=== PATIENT | male | born 1965 | race African-American/Black ===

== ENCOUNTER → 2019-12-10 16:04 | Outpatient (CLI) | payer SELFPAY ==
[2019-12-10 16:36] LABS: Anion Gap 9.9 mEq/L (5-15); Blood Urea Nitrogen 16 mg/dl (9-20); Calcium 9.1 mg/dl (8.4-10.2); Carbon Dioxide 34 mmol/L (22.0-30.0); Chloride 100 mmol/L (98-107); Estimated Glomerular Filt Rate 88 ml/min (>60); GFR (African American) 106 ML/MIN (>60); Glucose 81 mg/dl (74-100); Potassium 3.9 mmoL/L (3.5-5.1); Sodium 140 mmol/L (136-145)
== END ==
PROVIDERS: Visit Provider Internal Medicine
DX: I10 Essential (primary) hypertension (principal)
CPT/HCPCS: 80048

== ENCOUNTER → 2020-02-09 10:47 | Outpatient (CLI) | payer SELFPAY | PROVIDERS: Visit Provider Internal Medicine | DX: R36.9 Urethral discharge, unspecified (principal) | CPT/HCPCS: 87210 ==

== ENCOUNTER → 2020-12-15 18:21 | Outpatient (CLI) | payer SELFPAY ==
[2020-12-15 19:13] LABS: Basophils % 0.7 % (0.1-2.0); Eosinophils # 0.2 K/mm3 (0.0-0.4); Eosinophils % 4.9 % (0.1-12.0); Hematocrit 50.8 % (42.0-52.0); Hemoglobin 16.1 g/dL (14.1-18.0); Lymphocytes # 1.5 K/mm3 (0.7-4.5); Lymphocytes % 33.1 % (10-50); Mean Corpuscular HGB Conc 31.6 g/dL (31.8-35.4); Mean Corpuscular Volume 91.7 fl (80-94); Mean Platelet Volume 9.5 fl (7.4-10.4); Monocytes # 0.5 K/mm3 (0.1-1.0); Monocytes % 11.3 % (1.7-9.3); Neutrophils # 2.2 K/mm3 (1.8-7.8); Platelet Count 296 K/mm3 (142-424); Red Blood Count 5.54 M/mm3 (4.60-6.20); Red Cell Distribution Width 13.9 % (11.5-17.5); White Blood Count 4.4 K/mm3 (4.8-10.8)
[2020-12-15 19:46] LABS: Alanine Aminotransferase 17 U/L (12-78); Albumin Level 3.8 g/dl (3.5-5.0); Albumin/Globulin Ratio 1.1 (1.1-1.8); Alkaline Phosphatase 90 U/L (38-126); Anion Gap 10.4 mEq/L (5-15); Aspartate Amino Transferase 30 U/L (17-59); Bilirubin,Total 0.4 mg/dl (0.2-1.3); Blood Urea Nitrogen 11 mg/dl (9-20); Calcium 8.9 mg/dl (8.4-10.2); Carbon Dioxide 33 mmol/L (22.0-30.0); Chloride 101 mmol/L (98-107); Chol/HDL Ratio 2.9 (1-3.5); Cholesterol 168 mg/dl (140-200); Estimated Glomerular Filt Rate 100 ml/min (>60); GFR (African American) 121 ML/MIN (>60); Globulin 3.6 g/dL (1.3-3.2); Glucose 67 mg/dl (74-100); HDL Cholesterol 57 mg/dl (40-60); Potassium 4.4 mmoL/L (3.5-5.1); Sodium 140 mmol/L (136-145); Total Protein,Serum 7.4 g/dl (6.3-8.2); Triglycerides 71 mg/dl (30-150); VLDL Cholesterol 14 mg/dL (0-40)
[2020-12-15 19:57] LABS: Direct LDL Cholesterol 79.87 mg/dL (100-129)
[2020-12-15 20:17] LABS: Prostate Specific Ag Screen 0.4 ng/ml (0.0-4.0)
== END ==
PROVIDERS: Visit Provider Internal Medicine
DX: I10 Essential (primary) hypertension (principal); E78.5 Hyperlipidemia, unspecified; E87.6 Hypokalemia; N40.1 Benign prostatic hyperplasia with lower urinary tract symptoms; Z12.5 Encounter for screening for malignant neoplasm of prostate
CPT/HCPCS: 80053; 80061; 85025; G0103

== ENCOUNTER → 2021-01-08 14:45 | Outpatient (CLI) | payer SELFPAY ==
--- NOTE | 2021-01-08 15:02 | XR_ITS ---
PROCEDURE: XR CHEST 2V CLINICAL HISTORY: COUGH, RT ANTERIOR CHEST PAIN COMPARISON: No exams were available for comparison FINDINGS: Normal heart size. Patchy density is present in the right lung base consistent with an area of atelectasis or infiltrate. There is also prominence of the left hilum. There are no previous exams for comparison to determine if this is chronic or new. Mild upper thoracic curvature convex right. No acute bony abnormalities. IMPRESSION: Patchy atelectasis or infiltrate in the right lung base. Prominent left hilum. Follow-up suggested. Nonemergent CT chest with contrast may be of further value. Dictated by: Speedy Nielsen MD 01/08/2021 17:01 Speedy Nielsen MD in [place] 01/08/2021 17:01
[2021-01-08 15:09] LABS: Chloride 95 mmol/L (98-107); Sodium 140 mmol/L (136-145)
[2021-01-08 15:10] LABS: Basophils % 1.1 % (0.1-2.0); Eosinophils % 0.6 % (0.1-12.0); Hematocrit 50.4 % (42.0-52.0); Hemoglobin 16.7 g/dL (14.1-18.0); Lymphocytes # 0.8 K/mm3 (0.7-4.5); Lymphocytes % 26.5 % (10-50); Mean Corpuscular HGB Conc 33.2 g/dL (31.8-35.4); Mean Corpuscular Hemoglobin 29.4 pg (27.0-31.2); Mean Corpuscular Volume 88.5 fl (80-94); Mean Platelet Volume 8.7 fl (7.4-10.4); Monocytes # 0.1 K/mm3 (0.1-1.0); Monocytes % 4.5 % (1.7-9.3); Neutrophils # 2.1 K/mm3 (1.8-7.8); Neutrophils % 67.3 % (37.0-80.0); Platelet Count 247 K/mm3 (142-424); Potassium 3.5 mmoL/L (3.5-5.1); Red Cell Distribution Width 13.3 % (11.5-17.5); White Blood Count 3.1 K/mm3 (4.8-10.8)
[2021-01-08 15:12] LABS: Blood Urea Nitrogen 20 mg/dl (9-20); Estimated Glomerular Filt Rate 63 ml/min (>60); GFR (African American) 76 ML/MIN (>60)
[2021-01-08 15:13] LABS: Anion Gap 13.5 mEq/L (5-15); Carbon Dioxide 35 mmol/L (22.0-30.0); Glucose 102 mg/dl (74-100)
== END ==
PROVIDERS: Visit Provider Internal Medicine
DX: R07.89 Other chest pain (principal); R05.9 Cough, unspecified
CPT/HCPCS: 36415; 71046; 80048; 85025

== ENCOUNTER → 2021-01-08 16:14 | Outpatient (CLI) | payer OTHER, SELFPAY | PROVIDERS: Visit Provider Nurse Practitioner | DX: U07.1 COVID-19 (principal) | CPT/HCPCS: C9803; U0003; U0005 ==

== ENCOUNTER → 2021-06-01 14:56 | Outpatient (CLI) | payer BC, SELFPAY ==
[2021-06-01 17:17] LABS: Alanine Aminotransferase 16 U/L (12-78); Albumin Level 3.8 g/dl (3.5-5.0); Albumin/Globulin Ratio 1.3 (1.1-1.8); Alkaline Phosphatase 67 U/L (38-126); Anion Gap 8.4 mEq/L (5-15); Aspartate Amino Transferase 31 U/L (17-59); Bilirubin,Total 0.6 mg/dl (0.2-1.3); Blood Urea Nitrogen 16 mg/dl (9-20); Calcium 8.6 mg/dl (8.4-10.2); Carbon Dioxide 31 mmol/L (22.0-30.0); Chloride 104 mmol/L (98-107); Chol/HDL Ratio 2.8 (1-3.5); Cholesterol 143 mg/dl (140-200); Estimated Glomerular Filt Rate 100 ml/min (>60); GFR (African American) 121 ML/MIN (>60); Globulin 2.9 g/dL (1.3-3.2); Glucose 75 mg/dl (74-100); HDL Cholesterol 52 mg/dl (40-60); Potassium 4.4 mmoL/L (3.5-5.1); Sodium 139 mmol/L (136-145); Total Protein,Serum 6.7 g/dl (6.3-8.2); Triglycerides 74 mg/dl (30-150); VLDL Cholesterol 15 mg/dL (0-40)
== END ==
PROVIDERS: PCP Internal Medicine; Visit Provider Internal Medicine
DX: I10 Essential (primary) hypertension (principal); E78.5 Hyperlipidemia, unspecified; N40.1 Benign prostatic hyperplasia with lower urinary tract symptoms; Z84.2 Family history of other diseases of the genitourinary system
CPT/HCPCS: 80053; 80061

== ENCOUNTER → 2021-12-14 13:30 | Outpatient (CLI) | payer BC, SELFPAY ==
[2021-12-14 15:51] LABS: Anion Gap 15.8 mEq/L (5-15); Blood Urea Nitrogen 17 mg/dl (9-20); Calcium 8.7 mg/dl (8.4-10.2); Carbon Dioxide 34 mmol/L (22.0-30.0); Chloride 95 mmol/L (98-107); Estimated Glomerular Filt Rate 87 ml/min (>60); GFR (African American) 105 ML/MIN (>60); Glucose 85 mg/dl (74-100); Potassium 3.8 mmoL/L (3.5-5.1); Sodium 141 mmol/L (136-145)
[2021-12-14 16:20] LABS: Prostate Specific Ag Screen 0.4 ng/ml (0.0-4.0)
== END ==
PROVIDERS: PCP Internal Medicine; Visit Provider Internal Medicine
DX: Z00.00 Encounter for general adult medical examination without abnormal findings (principal); I10 Essential (primary) hypertension; Z12.5 Encounter for screening for malignant neoplasm of prostate
CPT/HCPCS: 80048; G0103

== ENCOUNTER 2022-09-11 09:08 | Day surgery (SDC) | payer BC, SELFPAY ==
[2022-09-04 09:38] VITALS: BMI 32.1
[2022-09-11] VITALS (7 sets, daily range): BP systolic 108–166; BP diastolic 55–81; PULSE 58–79; RESP 16–18; TEMP 36.3; O2SAT 93–98
--- NOTE | 2022-09-11 10:47 | EXP.ANES.CKL ---
[facility] Disclaimer: The information contained in this section may have been updated after the patient was seen, as this information can be updated by other users. Medical History Hypertension Mitral valve prolapse Surgical History No significant past surgical history Family History (Updated 09/11/22 @ 10:32 by Zo Daniels RN) Other Breast cancer Colon cancer Family history of acute renal failure Family history of diabetes mellitus type II Family history of mitral valve prolapse Leukemia Throat cancer Social History Smoking Status: Never smoker alcohol intake: never substance use type: denies use current occupational status: employed Travel in the last 8 weeks: None household members: none housing: house lives independently: Yes marital status: single education level: high school service: No senior care: No caffeine: Yes special sae needs: No do you feel safe at home: Yes victim of physical abuse: No victim of emotional abuse: No victim of sexual abuse: No would you like helpful sources: No [facility] Anesthesia Checklist Patient Identification Patient Identification: Arm Band and Verbal (Name & ) Structural Data Admitted From: Home Planned Operative Procedure/s: colonoscopy Consent for Planned Operative Procedure(s) Verified: Yes Verified Documents: Surgical Consent NPO Status Verified Time NPO: 00:00 Additional verifications Anesthesia Reactions: No Airway Assessment C-Spine Mobility Assessed: Yes TMJ Mobility Assessed: Yes Dentition: Good Dentition Anesthesia Plan Anesthesia Risk discussed: Yes ASA Class: II Anesthesia Type: IV sedation
--- NOTE | 2022-09-11 11:44 | HMH.SCOPE ---
Procedure: Date: 09/11/22 Patient Date of :: 1965 Procedure Performed:: Colonoscopy Indications:: The patient presents today for first time screening colonoscopy. The patient voices there is possible colon cancer within the family Performing Provider:: Art Ayala MD Referring Provider:: Alvarez Bridges MD Sedation:: See RN records Procedure:: After placing the patient in the left lateral decubitus position, the colonoscopy was gently inserted into the rectum and under direct visualization advanced to the cecum which was identified by transillumination in the right lower quadrant, identification of the ileocecal valve, appendiceal orifice, and cecal strap. Color, texture, mucosa, and anatomy of the colon were carefully examined with the scope. Findings:: Anal canal: normal Rectum: Hemorrhoids Sigmoid colon: normal without polyps or inflammatory changes Descending colon: normal without polyps or inflammatory changes Splenic flexure: normal Transverse colon: normal without polyps or inflammatory changes Hepatic flexure: normal Ascending colon: normal without polyps or inflammatory changes Cecum: normal Terminal ileum: not visualized Impression: Normal appearing colon Recommendations:: Repeat colonoscopy in 5 years Complications:: none Estimated blood obtained (mL): 0 Colonoscopy Component Colonoscopy Component Was a colonoscopy performed during today's procedure?: Yes Recommended follow up colonoscopy of at least 10 years?: Yes
== END 2022-09-11 12:30 | disposition home or self-care (01) ==
PROVIDERS: PCP Internal Medicine; Visit Provider Internal Medicine
PROC: 0DJD8ZZ Inspection of Lower Intestinal Tract, Via Natural or Artificial Opening Endoscopic (ICD-10-PCS; CPT 45378; principal; 2022-09-11 11:00)
DX: Z12.11 Encounter for screening for malignant neoplasm of colon (principal); K64.8 Other hemorrhoids
CPT/HCPCS: 45378

== ENCOUNTER → 2022-12-13 14:58 | Outpatient (CLI) | payer BC, SELFPAY ==
[2022-12-13 17:46] LABS: Alanine Aminotransferase 25 U/L (12-78); Albumin Level 4.1 g/dl (3.5-5.0); Albumin/Globulin Ratio 1.2 (1.1-1.8); Alkaline Phosphatase 85 U/L (38-126); Aspartate Amino Transferase 37 U/L (17-59); Bilirubin,Total 0.4 mg/dl (0.2-1.3); Blood Urea Nitrogen 19 mg/dl (9-20); Calcium 8.8 mg/dl (8.4-10.2); Chloride 99 mmol/L (98-107); Chol/HDL Ratio 3.3 (1-3.5); Cholesterol 179 mg/dl (140-200); Estimated Glomerular Filt Rate 87 ml/min (>60); GFR (African American) 105 ML/MIN (>60); Globulin 3.4 g/dL (1.3-3.2); Glucose 75 mg/dl (74-100); HDL Cholesterol 54 mg/dl (40-60); Potassium 4.4 mmoL/L (3.5-5.1); Sodium 139 mmol/L (136-145); Total Protein,Serum 7.5 g/dl (6.3-8.2); Triglycerides 70 mg/dl (30-150); VLDL Cholesterol 14 mg/dL (0-40)
[2022-12-13 17:56] LABS: Direct LDL Cholesterol 93.29 mg/dL (100-129)
[2022-12-13 18:17] LABS: Prostate Specific Ag Screen 0.3 ng/ml (0.0-4.0)
[2022-12-13 18:24] LABS: Anion Gap 14.4 mEq/L (5-15); Carbon Dioxide 30 mmol/L (22.0-30.0)
== END ==
PROVIDERS: PCP Internal Medicine; Visit Provider Internal Medicine
DX: Z12.5 Encounter for screening for malignant neoplasm of prostate (principal); I10 Essential (primary) hypertension; N40.1 Benign prostatic hyperplasia with lower urinary tract symptoms; E78.5 Hyperlipidemia, unspecified; Z84.2 Family history of other diseases of the genitourinary system; F43.21 Adjustment disorder with depressed mood
CPT/HCPCS: 80053; 80061; G0103

== ENCOUNTER 2024-01-07 11:08 | Outpatient (CLI) | payer BC, SELFPAY ==
[2024-01-07 10:48] LABS: Basophils # 0.1 K/mm3 (0-0.2); Basophils % 1.1 % (0.1-2.0); Eosinophils # 0.2 K/mm3 (0.0-0.4); Eosinophils % 4.2 % (0.1-12.0); Hematocrit 48.6 % (42.0-52.0); Hemoglobin 16.6 g/dL (14.1-18.0); Lymphocytes # 1.4 K/mm3 (0.7-4.5); Lymphocytes % 32.2 % (10-50); Mean Corpuscular HGB Conc 34.1 g/dL (31.8-35.4); Mean Corpuscular Hemoglobin 29.5 pg (27.0-31.2); Mean Corpuscular Volume 86.3 fl (80-94); Mean Platelet Volume 8.2 fl (7.4-10.4); Monocytes # 0.4 K/mm3 (0.1-1.0); Monocytes % 9.9 % (1.7-9.3); Neutrophils # 2.2 K/mm3 (1.8-7.8); Neutrophils % 52.6 % (37.0-80.0); Platelet Count 249 K/mm3 (142-424); Red Blood Count 5.63 M/mm3 (4.60-6.20); White Blood Count 4.3 K/mm3 (4.8-10.8)
[2024-01-07 10:58] LABS: Alanine Aminotransferase 22 U/L (12-78); Albumin Level 4.1 g/dl (3.5-5.0); Albumin/Globulin Ratio 1.3 (1.1-1.8); Alkaline Phosphatase 88 U/L (38-126); Anion Gap 9.8 mEq/L (5-15); Aspartate Amino Transferase 33 U/L (17-59); Bilirubin,Total 0.6 mg/dl (0.2-1.3); Blood Urea Nitrogen 15 mg/dl (9-20); Carbon Dioxide 34 mmol/L (22.0-30.0); Chloride 99 mmol/L (98-107); Chol/HDL Ratio 2.9 (1-3.5); Cholesterol 173 mg/dl (140-200); Estimated Glomerular Filt Rate 86 ml/min (>60); GFR (African American) 105 ML/MIN (>60); Globulin 3.2 g/dL (1.3-3.2); Glucose 93 mg/dl (74-100); HDL Cholesterol 59 mg/dl (40-60); Potassium 3.8 mmoL/L (3.5-5.1); Sodium 139 mmol/L (136-145); Total Protein,Serum 7.3 g/dl (6.3-8.2); Triglycerides 111 mg/dl (30-150); VLDL Cholesterol 22 mg/dL (0-40)
[2024-01-07 11:09] LABS: Direct LDL Cholesterol 70.65 mg/dL (100-129)
[2024-01-07 11:30] LABS: Prostate Specific Ag Screen 0.4 ng/ml (0.0-4.0)
== END 2024-01-07 23:59 | disposition home or self-care (01) ==
LOC: LAB.DROPOF 11:09
PROVIDERS: PCP Internal Medicine; Visit Provider Internal Medicine
DX: E78.5 Hyperlipidemia, unspecified (principal); I10 Essential (primary) hypertension; Z12.5 Encounter for screening for malignant neoplasm of prostate
CPT/HCPCS: 80053; 80061; 85025; G0103

== ENCOUNTER 2025-01-06 09:10 | Outpatient (CLI) | payer BC, SELFPAY ==
[2025-01-06 14:05] LABS: Hematocrit 47.9 % (42.0-52.0); Hemoglobin 15.8 g/dL (14.1-18.0); Immature Granulocytes % 0 %; Mean Corpuscular HGB Conc 33.0 g/dL (31.8-35.4); Mean Corpuscular Hemoglobin 28.3 pg (27.0-31.2); Mean Corpuscular Volume 85.8 fl (80-94); Nucleated Red Blood Cells % 0 %; Platelet Count 273 K/mm3 (142-424); Red Blood Count 5.58 M/mm3 (4.60-6.20); Red Cell Distribution Width-SD 44.1 fL; White Blood Count 4.4 K/mm3 (4.8-10.8)
[2025-01-06 14:39] LABS: Alanine Aminotransferase 28 U/L (12-78); Albumin Level 4.3 g/dl (3.5-5.0); Albumin/Globulin Ratio 1.3 (1.1-1.8); Alkaline Phosphatase 86 U/L (38-126); Anion Gap 11.9 mEq/L (5-15); Aspartate Amino Transferase 47 U/L (17-59); Bilirubin,Total 0.6 mg/dl (0.2-1.3); Blood Urea Nitrogen 14 mg/dl (9-20); Calcium 9.5 mg/dl (8.4-10.2); Carbon Dioxide 31 mmol/L (22.0-30.0); Chloride 98 mmol/L (98-107); Cholesterol 184 mg/dl (140-200); Creatinine,Serum 0.80 mg/dl (0.66-1.25); Estimated Glomerular Filt Rate 99 ml/min (>60); GFR (African American) 119 ML/MIN (>60); Globulin 3.2 g/dL (1.3-3.2); Glucose 74 mg/dl (74-100); HDL Cholesterol 62 mg/dl (40-60); Potassium 3.9 mmoL/L (3.5-5.1); Sodium 137 mmol/L (136-145); Total Protein,Serum 7.5 g/dl (6.3-8.2); Triglycerides 80 mg/dl (30-150)
== END 2025-01-06 23:59 ==
LOC: LAB.DROPOF 01-07 13:41
PROVIDERS: PCP Internal Medicine; Visit Provider Internal Medicine
DX: E78.5 Hyperlipidemia, unspecified (principal); I10 Essential (primary) hypertension
CPT/HCPCS: 80053; 80061; 85025

== ENCOUNTER 2025-02-07 10:30 | Outpatient (CLI) | payer BC, SELFPAY | END 2025-02-07 23:59 | disposition home or self-care (01) | LOC: LAB.DROPOF 02-08 12:48 | PROVIDERS: PCP Internal Medicine; Visit Provider Internal Medicine | DX: Z12.5 Encounter for screening for malignant neoplasm of prostate (principal) | CPT/HCPCS: G0103 ==